=== PATIENT | male | born 1950 | race Two or more races ===

== ENCOUNTER 2024-03-15 14:27 | Inpatient (IN) | payer MEDICARE, OTHER ==
[~2024-03-15] VITALS: Ht 167.6 cm; Wt 103.7 kg
[2024-03-15] VITALS (7 sets, daily range): BP systolic 103; BP diastolic 79; PULSE 71–117; RESP 18–27; TEMP 98.5; O2SAT 95–97
[2024-03-15 15:23] LABS: BASOPHILS % (AUTO) 0.1 % (0-1); EOSINOPHILS % (AUTO) 0 % (0-6); HEMATOCRIT 44.5 % (42.0-52.0); HEMOGLOBIN 14.8 g/dl (14.0-17.9); LYMPHOCYTES # (AUTO) 0.9 X10'3 (1.1-4.8); LYMPHOCYTES % (AUTO) 7.2 % (21-51); MEAN CORPUSCULAR HEMOGLOBIN 29.1 PG (27.0-31.0); MEAN CORPUSCULAR HGB CONC 33.3 g/dL (33.0-36.5); MEAN CORPUSCULAR VOLUME 87.3 FL (78-98); MEAN PLATELET VOLUME 7.2 FL (7.4-10.4); MONOCYTES # (AUTO) 1.6 X10'3 (0-0.9); MONOCYTES % (AUTO) 12.4 % (2-12); NEUTROPHILS # (AUTO) 10.1 X10'3 (1.8-7.7); NEUTROPHILS % (AUTO) 80.3 % (42-75); PLATELET COUNT 299 X10'3 (140-440); RED CELL DISTRIBUTION WIDTH 14.6 % (11.5-14.5); WHITE BLOOD COUNT 12.6 X10'3 (4.5-11.0)
[2024-03-15] MEDS: methylPREDNISolone sod succ 125mg/2ml vial IV ONE (15:43)
[2024-03-15] MEDS: ondansetron/PF 4mg/2ml inj IV ONE ×2 (15:43→17:26)
[2024-03-15] MEDS: normal saline 1000ml 1,000 ML IV ONE (15:43)
[2024-03-15 16:11] LABS: ANION GAP 12 (8-16); BILIRUBIN,TOTAL 0.9 MG/DL (0.1-1.0); BLOOD UREA NITROGEN 23 MG/DL (7-18); BUN/CREATININE RATIO 22.3 (10.0-20.0); CALCIUM 9.5 MG/DL (8.5-10.1); CHLORIDE 97 MMOL/L (99-107); CREATININE 1.03 MG/DL (0.60-1.10); GLUCOSE 108 MG/DL (70-104); SODIUM 135 MMOL/L (135-145); TOTAL CARBON DIOXIDE 25.7 MMOL/L (24-32); TOTAL PROTEIN 8.8 G/DL (6.4-8.2); eCRCL 57 ML/MIN; eGFR 71 ML/MIN
[2024-03-15 16:12] LABS: ALANINE AMINOTRANSFERASE 35 U/L (12-78); ALBUMIN 3.7 G/DL (3.4-5.0); ALBUMIN/GLOBULIN RATIO 0.7 (1.1-1.5); ALKALINE PHOSPHATASE 77 IU/L (46-116); ASPARTATE AMINO TRANSFERASE 76 U/L (10-37)
[2024-03-15 16:20] LABS: BILIRUBIN,DIRECT 0.3 MG/DL (0-0.3); C-REACTIVE PROTEIN 8.99 MG/DL (0.0-0.5); LIPASE 42 U/L (16-77); PRO BRAIN NATRIURETIC PEPTIDE 4174 PG/ML (0-125)
[2024-03-15] MEDS: albuterol 2.5 MG/3 ML nebule NEB ONE (16:25)
[2024-03-15] MEDS ORDERED: potassium Cl 40MEQ/1/2NS 520ml 520 ML IV PRN (16:30)
[2024-03-15] MEDS ORDERED: magnesium Cl slow-release 64mg tablet PO PRN (16:30)
[2024-03-15] MEDS ORDERED: magnesium sulf-water 2g/50mL 50 ML IV PRN (16:30)
[2024-03-15] MEDS ORDERED: magnesium sulf-water 4G/100mL 100 ML IV PRN (16:30)
[2024-03-15] MEDS ORDERED: HYDROcodone/acetaminophen 5mg/325mg tablet PO PRN (16:30)
[2024-03-15] MEDS ORDERED: morphine 2 MG/ML inj. syringe IV PRN (16:30)
[2024-03-15] MEDS ORDERED: acetaminophen 325mg tablet PO PRN ×2 (16:30)
[2024-03-15] MEDS ORDERED: ondansetron/PF 4mg/2ml inj IV PRN (16:30)
[2024-03-15] MEDS ORDERED: potassium Cl 20 mEq SR tablet PO PRN ×2 (16:30)
[2024-03-15 16:45] LABS: ABG BASE EXCESS -0.1 mmol/L (-2.0-3.0); ABG HCO3 23.7 mmol/L (21.0-28.0); ABG OXYGEN SATURATION 91.9 % (94.0-98.0); ABG PCO2 (T) 36.4 mmHg (35.0-48.0); ABG PH (T) 7.431 (7.350-7.450); ABG PO2 (T) 61.4 mmHg (83.0-108.0); ALLEN'S TEST POSITIVE; FCOHb 0.6 % (0.5-1.5); FLOW 1 L/min; FMetHb 0.3 % (0.0-1.5); FO2Hb 91.1 % (94.0-98.0); MODE NASAL CANNULA; PATIENT TEMPERATURE 36.9; TOTAL HEMOGLOBIN 15.9 G/dl (13.5-17.5)
[2024-03-15] MEDS ORDERED: VENL-191 PO (16:49)
[2024-03-15] MEDS ORDERED: VENL25TA48 PO (16:49)
[2024-03-15] MEDS ORDERED: DILT120T14 PO (16:53)
[2024-03-15] MEDS ORDERED: FLO0.4C PO (16:53)
[2024-03-15] MEDS ORDERED: METO-467 PO (16:53)
[2024-03-15] MEDS ORDERED: ROSU5TAB51 PO (16:53)
[2024-03-15] MEDS ORDERED: ROSU20TA98 PO (16:54)
[2024-03-15] MEDS ORDERED: diltiazem 30mg tablet PO SCH (16:55)
[2024-03-15] MEDS ORDERED: ipratropium/albuterol 3ml nebule NEB PRN (17:05)
[2024-03-15] MEDS: diltiazem 30mg tablet PO ONE (17:24)
[2024-03-15] MEDS: metoprolol tartrate 50mg tablet PO ONE (17:25)
[2024-03-15] MEDS: CefTRIAXone 2gm/D5W 50ml BAG 50 ML IV ONE (17:26)
[2024-03-15 18:58] LABS: BILIRUBIN,URINE NEGATIVE (Neg); CLARITY,URINE CLEAR (Clear); COLOR,URINE YELLOW (Yellow); GLUCOSE, URINE NEGATIVE (Neg); KETONES,URINE NEGATIVE (Neg); LEUKOCYTE ESTERASE ,URINE NEGATIVE (Neg); NITRITES, URINE NEGATIVE (Neg); OCCULT BLOOD,URINE MODERATE (Neg); PROTEIN,URINE 100 mg/dl (Neg); UROBILINOGEN,URINE 0.2 E.U/dL (0.2-1.0)
[2024-03-15 18:59] LABS: UA COLLECTION TYPE VOIDED
[2024-03-15 19:12] LABS: SQUAMOUS EPITHELIAL CELL,UR FEW /LPF (FEW)
[2024-03-15 19:15] LABS: BACTERIA,URINE 2+ /HPF (Neg); RBC,URINE 0-2 /HPF (0-2)
[2024-03-15 19:16] LABS: HYALINE CASTS 0-3 /LPF (NEGATIVE); WBC,URINE 0-4 /HPF (0-4)
[2024-03-15 19:17] LABS: URINE AMPHETAMINE SCREEN NEGATIVE (Neg); URINE BARBITUATE SCREEN NEGATIVE (Neg); URINE BENZODIAZEPINES SCREEN NEGATIVE (Neg); URINE CANNABINOID SCREEN POSITIVE (Neg); URINE COCAINE SCREEN NEGATIVE (Neg); URINE METHADONE SCREEN NEGATIVE (Neg); URINE OPIATE SCREEN NEGATIVE (Neg); URINE PHENCYCLIDINE SCREEN NEGATIVE (Neg)
[2024-03-15] MEDS: albuterol 2.5 MG/3 ML nebule NEB SCH (19:40)
[2024-03-15] MEDS: oseltamivir phos 75mg capsule PO SCH (20:07)
[2024-03-15] MEDS: atorvastatin 20mg tablet PO SCH (20:07)
[2024-03-15] MEDS: methylPREDNISolone sod succ/PF 40mg inj. IV SCH (20:08)
[2024-03-15] MEDS: heparin, porcine 5000 units/ml vial SQ SCH (20:08)
[2024-03-15] MEDS: normal saline 1000ml 1,000 ML IV SCH (20:09)
[2024-03-16] VITALS (13 sets, daily range): BP systolic 119–141; BP diastolic 75–96; PULSE 72–106; RESP 18–30; TEMP 98.2–98.5; O2SAT 94–97
[2024-03-16] MEDS: tamsulosin 0.4mg capsule PO SCH (01:00)
[2024-03-16 06:31] LABS: BASOPHILS % (AUTO) 0.1 % (0-1); EOSINOPHILS % (AUTO) 0 % (0-6); HEMATOCRIT 41.7 % (42.0-52.0); HEMOGLOBIN 14.1 g/dl (14.0-17.9); LYMPHOCYTES # (AUTO) 0.7 X10'3 (1.1-4.8); LYMPHOCYTES % (AUTO) 7.4 % (21-51); MEAN CORPUSCULAR HEMOGLOBIN 29.4 PG (27.0-31.0); MEAN CORPUSCULAR HGB CONC 33.8 g/dL (33.0-36.5); MEAN PLATELET VOLUME 7.3 FL (7.4-10.4); MONOCYTES # (AUTO) 0.2 X10'3 (0-0.9); MONOCYTES % (AUTO) 2.6 % (2-12); NEUTROPHILS # (AUTO) 8.3 X10'3 (1.8-7.7); NEUTROPHILS % (AUTO) 89.9 % (42-75); PLATELET COUNT 289 X10'3 (140-440); RED BLOOD COUNT 4.79 X10'6 (4.70-6.10); RED CELL DISTRIBUTION WIDTH 14.6 % (11.5-14.5); WHITE BLOOD COUNT 9.2 X10'3 (4.5-11.0)
[2024-03-16 06:44] LABS: ALANINE AMINOTRANSFERASE 42 U/L (12-78); ALBUMIN 3.2 G/DL (3.4-5.0); ALBUMIN/GLOBULIN RATIO 0.7 (1.1-1.5); ALKALINE PHOSPHATASE 67 IU/L (46-116); ANION GAP 8 (8-16); ASPARTATE AMINO TRANSFERASE 75 U/L (10-37); BILIRUBIN,TOTAL 0.6 MG/DL (0.1-1.0); BLOOD UREA NITROGEN 28 MG/DL (7-18); BUN/CREATININE RATIO 28.6 (10.0-20.0); CHLORIDE 102 MMOL/L (99-107); CREATININE 0.98 MG/DL (0.60-1.10); GLUCOSE 158 MG/DL (70-104); POTASSIUM 4.2 MMOL/L (3.5-5.1); SODIUM 137 MMOL/L (135-145); TOTAL CARBON DIOXIDE 26.8 MMOL/L (24-32); eCRCL 60 ML/MIN; eGFR 75 ML/MIN
[2024-03-16] MEDS ORDERED: tamsulosin 0.4mg capsule PO SCH (08:00)
[2024-03-16] MEDS: venlafaxine 25mg tablet PO SCH (09:02)
[2024-03-16] MEDS: diltiazem 30mg tablet PO SCH (09:03)
[2024-03-16] MEDS: metoprolol tartrate 50mg tablet PO SCH (09:08)
[2024-03-16] MEDS: lactose-reduced food (Ensure Enlive) - 237ml bottle PO SCH (18:29)
[2024-03-17 06:00] VITALS: BP 135/87; PULSE 88; RESP 16; TEMP 98; O2SAT 97
[2024-03-17 08:00] LABS: BASOPHILS % (AUTO) 0 % (0-1); EOSINOPHILS % (AUTO) 0 % (0-6); HEMATOCRIT 41.4 % (42.0-52.0); HEMOGLOBIN 14.1 g/dl (14.0-17.9); LYMPHOCYTES # (AUTO) 0.6 X10'3 (1.1-4.8); LYMPHOCYTES % (AUTO) 3.9 % (21-51); MEAN CORPUSCULAR HEMOGLOBIN 29.5 PG (27.0-31.0); MEAN CORPUSCULAR VOLUME 86.9 FL (78-98); MEAN PLATELET VOLUME 7.5 FL (7.4-10.4); MONOCYTES # (AUTO) 0.7 X10'3 (0-0.9); MONOCYTES % (AUTO) 5.1 % (2-12); NEUTROPHILS # (AUTO) 12.7 X10'3 (1.8-7.7); PLATELET COUNT 339 X10'3 (140-440); RED BLOOD COUNT 4.76 X10'6 (4.70-6.10); RED CELL DISTRIBUTION WIDTH 14.7 % (11.5-14.5); WHITE BLOOD COUNT 13.9 X10'3 (4.5-11.0)
[2024-03-17 08:45] LABS: ALANINE AMINOTRANSFERASE 43 U/L (12-78); ALBUMIN 3.1 G/DL (3.4-5.0); ALBUMIN/GLOBULIN RATIO 0.7 (1.1-1.5); ALKALINE PHOSPHATASE 60 IU/L (46-116); ANION GAP 8 (8-16); ASPARTATE AMINO TRANSFERASE 60 U/L (10-37); BILIRUBIN,TOTAL 0.6 MG/DL (0.1-1.0); BLOOD UREA NITROGEN 31 MG/DL (7-18); CALCIUM 8.7 MG/DL (8.5-10.1); CHLORIDE 103 MMOL/L (99-107); CREATININE 0.97 MG/DL (0.60-1.10); GLUCOSE 145 MG/DL (70-104); POTASSIUM 3.9 MMOL/L (3.5-5.1); SODIUM 139 MMOL/L (135-145); TOTAL CARBON DIOXIDE 27.8 MMOL/L (24-32); TOTAL PROTEIN 7.4 G/DL (6.4-8.2); eCRCL 60 ML/MIN; eGFR 76 ML/MIN
[2024-03-17 10:00] VITALS: BP 149/80; PULSE 83; RESP 22; TEMP 97.1; O2SAT 96
[2024-03-17] MEDS ORDERED: TAM75C PO (13:10)
[2024-03-17] MEDS ORDERED: ALBU8HFA PO (13:10)
[2024-03-17] MEDS ORDERED: PRED10TA23 PO (13:10)
[2024-03-17] MEDS ORDERED: BUDE10.2 INH (13:10)
[2024-03-17] MEDS ORDERED: LEVO750T68 PO (13:10)
== END 2024-03-17 15:15 | disposition home or self-care (01) | DRG 193 ==
LOC: ER 14:28 → ED HOLD 16:35 → ORTHO 4S 23:40
PROVIDERS: ADMIT Internal Medicine; ATTEND Internal Medicine
PROC: 5A09357 Assistance with Respiratory Ventilation, Less than 24 Consecutive Hours, Continuous Positive Airway Pressure (ICD-10-PCS; principal; 2024-03-16)
DX: J10.1 Influenza due to other identified influenza virus with other respiratory manifestations (principal); J96.01 Acute respiratory failure with hypoxia; J44.1 Chronic obstructive pulmonary disease with (acute) exacerbation; J44.0 Chronic obstructive pulmonary disease with (acute) lower respiratory infection; Z20.822 Contact with and (suspected) exposure to COVID-19; F41.9 Anxiety disorder, unspecified; I48.91 Unspecified atrial fibrillation; Z60.2 Problems related to living alone; I27.81 Cor pulmonale (chronic); N40.0 Benign prostatic hyperplasia without lower urinary tract symptoms; G47.33 Obstructive sleep apnea (adult) (pediatric); Z96.651 Presence of right artificial knee joint; Z96.611 Presence of right artificial shoulder joint; Z79.899 Other long term (current) drug therapy; Z86.73 Personal history of transient ischemic attack (TIA), and cerebral infarction without residual deficits; Z87.891 Personal history of nicotine dependence
CPT/HCPCS: 36415; 36600; 71045; 80048; 80053; 80076; 80305; 81001; 82803; 83605; 83690; 83880; 84145; 84484; 85018; 85025; 86140; 87040; 87081; 87502; 87503; 87811; 93005; 93306; 94640; 94660; 94664; 94668; 94760; 97116; 97161; 97530; A4615; G0378; J0696; J1644; J2405; J2919; J7030

== ENCOUNTER 2024-03-25 08:36 | Emergency (ER) | payer MEDICARE, OTHER ==
[~2024-03-25] VITALS: Ht 167.6 cm; Wt 95.2 kg
[~2024-03-25 08:36] MED LIST: ALBU8HFA PO; BUDE10.2 INH; DILT120T14 PO; FLO0.4C PO; LEVO750T68 PO; METO-467 PO; PRED10TA23 PO; ROSU20TA98 PO; TAM75C PO; VENL25TA48 PO
[2024-03-25 08:57] VITALS: TEMP 97.7
[2024-03-25] MEDS: normal saline 1000ml 1,000 ML IV ONE (09:53)
[2024-03-25] MEDS: loperamide 2mg capsule PO ONE (09:59)
[2024-03-25 10:59] LABS: BASOPHILS % (AUTO) 0.2 % (0-1); EOSINOPHILS % (AUTO) 0 % (0-6); HEMATOCRIT 43.8 % (42.0-52.0); HEMOGLOBIN 14.6 g/dl (14.0-17.9); LYMPHOCYTES # (AUTO) 1.4 X10'3 (1.1-4.8); LYMPHOCYTES % (AUTO) 6.7 % (21-51); MEAN CORPUSCULAR HEMOGLOBIN 29.2 PG (27.0-31.0); MEAN CORPUSCULAR HGB CONC 33.3 g/dL (33.0-36.5); MEAN CORPUSCULAR VOLUME 87.7 FL (78-98); MEAN PLATELET VOLUME 6.8 FL (7.4-10.4); MONOCYTES # (AUTO) 1.5 X10'3 (0-0.9); MONOCYTES % (AUTO) 7.4 % (2-12); NEUTROPHILS # (AUTO) 17.6 X10'3 (1.8-7.7); NEUTROPHILS % (AUTO) 85.7 % (42-75); PLATELET COUNT 327 X10'3 (140-440); RED CELL DISTRIBUTION WIDTH 14.5 % (11.5-14.5); WHITE BLOOD COUNT 20.5 X10'3 (4.5-11.0)
[2024-03-25] MEDS: ondansetron/PF 4mg/2ml inj IV STA (11:10)
[2024-03-25 11:13] LABS: ALANINE AMINOTRANSFERASE 52 U/L (12-78); ALBUMIN 2.8 G/DL (3.4-5.0); ALBUMIN/GLOBULIN RATIO 0.8 (1.1-1.5); ALKALINE PHOSPHATASE 61 IU/L (46-116); ANION GAP 7 (8-16); ASPARTATE AMINO TRANSFERASE 17 U/L (10-37); BILIRUBIN,TOTAL 0.7 MG/DL (0.1-1.0); BLOOD UREA NITROGEN 21 MG/DL (7-18); BUN/CREATININE RATIO 24.7 (10.0-20.0); CALCIUM 8.6 MG/DL (8.5-10.1); CHLORIDE 104 MMOL/L (99-107); CREATININE 0.85 MG/DL (0.60-1.10); GLUCOSE 149 MG/DL (70-104); POTASSIUM 3.4 MMOL/L (3.5-5.1); SODIUM 138 MMOL/L (135-145); TOTAL PROTEIN 6.1 G/DL (6.4-8.2); eCRCL 69 ML/MIN; eGFR 88 ML/MIN
[2024-03-25 12:48] LABS: BILIRUBIN,URINE NEGATIVE (Neg); CLARITY,URINE CLEAR (Clear); COLOR,URINE YELLOW (Yellow); GLUCOSE, URINE NEGATIVE (Neg); KETONES,URINE NEGATIVE (Neg); LEUKOCYTE ESTERASE ,URINE NEGATIVE (Neg); NITRITES, URINE NEGATIVE (Neg); OCCULT BLOOD,URINE NEGATIVE (Neg); PH,URINE 6.5 (4.8-8.0); PROTEIN,URINE TRACE mg/dl (Neg); UROBILINOGEN,URINE 0.2 E.U/dL (0.2-1.0)
[2024-03-25 12:56] LABS: UA COLLECTION TYPE CLN CATCH MIDSTREAM
[2024-03-25 13:00] LABS: BACTERIA,URINE NONE SEEN /HPF (Neg); MUCUS STRANDS NONE SEEN /LPF (Neg); RBC,URINE NONE SEEN /HPF (0-2); SQUAMOUS EPITHELIAL CELL,UR NONE SEEN /LPF (FEW); WBC,URINE 0-4 /HPF (0-4)
[2024-03-25] MEDS ORDERED: iohexol 300mg/ml 100ml inj. ONE (13:20)
[2024-03-25 15:52] VITALS: BP 146/87; PULSE 86; RESP 18; O2SAT 100
== END 2024-03-25 15:53 | disposition home or self-care (01) ==
LOC: ER 08:37
DX: K29.00 Acute gastritis without bleeding (principal); R11.2 Nausea with vomiting, unspecified; Z79.52 Long term (current) use of systemic steroids; Z79.899 Other long term (current) drug therapy
CPT/HCPCS: 36415; 74177; 80053; 81001; 83605; 84145; 85025; 96360; 96361; 99285; J7030; Q9967